=== PATIENT | male | born 1985 | race Hispanic/Latino ===

== ENCOUNTER 2024-10-09 03:52 | Emergency (ER) | payer SELFPAY ==
--- NOTE | ~2024-10-09 | XR_ITS ---
Portable chest x-ray Comparison: None Clinical History: Chest tightness Findings: Lungs are clear, without focal consolidation or pleural effusion. Cardiomediastinal silho uette is unremarkable. Bones and soft tissues are unremarkable. Impression: Normal chest. Reviewed, dictated and finalized at location . Impression: Normal chest.
[2024-10-09 03:54] VITALS: BP 143/94; PULSE 85; RESP 15; TEMP 36.6; O2SAT 100
--- NOTE | 2024-10-09 04:01 | ECG_ITS ---
Test Date: 2024-10-09 04:06:28 Measurements Intervals [place] Rate: 85 P: 10 MO: 149 QRS: -12 QRSD: 105 T: 14 QT: 379 QTc: 451 Interpretive Statements SINUS RHYTHM VOLTAGE CRITERIA FOR LVH [MEETS CRITERIA IN ONE OF: R(aVL), S(V1), R(V5), R(V5/V6)+S(V1)] No previous ECG available for comparison Electronically Signed On 10-09-2024 11:35:49 CDT by Howard Richardson M.D.
[2024-10-09 04:08] VITALS: BP 145/99; PULSE 82; RESP 14; O2SAT 100
--- NOTE | 2024-10-09 04:42 | ED.RECABL ---
HPI - Recheck/Abnormal Lab/Rx General Chief Complaint: Recheck/Abnormal Lab/Rx Stated Complaint: i think i have high blood pressure Time Seen by Provider: 10/09/24 04:02 History of Present Illness HPI narrative: Patient presenting here with concern that him may have high blood pressure, he states that he ate 0 early salty food, and then started feeling slightly anxious, a chest feels slightly tight, he thinks that he may have high blood pressure. Was told about a year and half ago that he may have high blood pressure. Not currently on any medications, does not have a primary care doctor, does have a family history of high blood pressure. No shortness of breath, headache, dizziness, focal numbness or weakness, nausea vomiting. Review of Systems Review of Systems: All systems reviewed & are unremarkable except as noted in HPI and below Exam Narrative: EXAMINATION OF ORGAN SYSTEMS/BODY AREAS: Constitutional: Vital signs per nursing GENERAL:[No acute distress, non-toxic appearing.] HEAD: Normal with no signs of head trauma. EYES: EOMI, conjunctiva normal ENT: Hearing grossly intact LUNGS: Nonlabored breathing. Clear to auscultation bilaterally HEART: [Regular rate and rhythm] ABD: [Soft], [nontender to palpation] EXT: Normal range of motion SKIN: [No rashes or lesions.] NEURO: [Alert and oriented x 3. No gross focal sensory or strength deficits.] PSYCH: Normal affect Course Vital Signs Vital signs: Vital Signs Temperature 98 F 10/09/24 03:54 Pulse Rate 85 10/09/24 03:54 Respiratory Rate 15 10/09/24 03:54 Blood Pressure 143/94 H 10/09/24 03:54 Pulse Oximetry 100 10/09/24 03:54 Oxygen Delivery Room Air 10/09/24 03:54 Temperature 98 F 10/09/24 03:54 Pulse Rate 82 10/09/24 04:08 Respiratory Rate 14 10/09/24 04:08 Blood Pressure 145/99 H 10/09/24 04:08 Pulse Oximetry 100 10/09/24 04:08 Oxygen Delivery Room Air 10/09/24 03:54 MDM - Recheck/Abnormal Lab/Rx MDM Narrative Medical decision making narrative: Patient with borderline hypertension. No signs or symptoms of end organ dysfunction; no significant chest pain or shortness of breath, neurological deficits, severe headaches, visual disturbance, oliguria, or symptoms of dissection/AAA). EKG interpreted by myself shows normal sinus rhythm rate 85, CO 149, QRS 105, QTC 451, normal axis, no significant ST elevations or depressions. Chest x-ray on my independent interpretation shows no obvious consolidations or pneumothorax or cardiomegaly. Long-term risks of hypertension, especially uncontrolled, were discussed including increased risks of kidney disease, vascular disease, stroke and heart disease. We discussed lifestyle modifications including diet and exercise. Since he has had prior reading of hypertension in the past, with several slightly elevated blood pressure readings here, I will start patient on low-dose amlodipine and provide script for short course, with return precautions, patient expressed understanding of the instructions and strongly advised to follow-up with PMD for further management. Discharge Plan Discharge Clinical Impression: Hypertension, Sensation of chest tightness Patient Disposition: Home, Self-Care Condition: Stable Instructions: Chest Pain (ED), Hypertension (ED) Additional Instructions: Please follow-up with primary care doctor, you may need to have your blood pressure checked again and see if your medications need to be adjusted. If you start having any further chest pain, or anything else concerning, you can come back to the hospital. Patient Language: [place] Prescriptions: New amlodipine [Norvasc] 2.5 mg tablet 2.5 mg PO DAILY Qty: 30 0RF Follow-up/Referrals: Cristal,ASHER Cabral [Non-Staff] - 2 Days PHYSICIAN NOT ON STAFF,NONSTAFF [Non-Staff] -
== END 2024-10-09 06:20 | disposition home or self-care (01) ==
PROVIDERS: Emergency Provider Emergency Medicine
DX: R07.89 Other chest pain (principal); I10 Essential (primary) hypertension; R94.31 Abnormal electrocardiogram [ECG] [EKG]
CPT/HCPCS: 71045; 93005; 99283